=== PATIENT | male | born 1975 | race Caucasian/White ===

== ENCOUNTER → 2018-04-06 11:33 | Outpatient (CLI) | payer MEDICAID | END | disposition home or self-care (01) | LOC: D.MRI 11:30 | DX: M54.5 Low back pain (principal) ==

== ENCOUNTER → 2018-06-17 12:12 | Outpatient (CLI) | payer MEDICAID ==
--- NOTE | ~2018-06-17 | ST ---
PATIENT:GABRIEL OLIVA V MEDICAL RECORD: [id number] SEX: M LOCATION:[facility] ORDER #: ADMISSION DATE: 06/17/18 AGE OF PATIENT: 42 REFERRING PHYSICIAN: INTERPRETING PHYSICIAN: MARTA ZABALA MD DATE OF SERVICE: 06/17/2018 PROCEDURE: Nuclear stress test. INDICATION: Chest pain. The patient was exercised on standard Sharif protocol for 5 minutes 30 seconds achieving greater than 85% max target heart rate response with 32 mCi of sestamibi injected at peak stress, 10 mCi were used previously for rest images. FINDINGS: Gated SPECT reveals preserved ejection fraction at 62% with good wall motion and thickening and brightening throughout all segments. SPECT imaging Cardiolite was used as myocardial fusion agent. There is homogeneous uptake throughout all segments at rest and stress with no evidence of inducible ischemia or previous infarction. OVERALL IMPRESSION: 1. This is a normal nuclear stress test with no evidence of inducible ischemia or previous infarction. 2. Gated SPECT reveals a preserved ejection fraction at 62%. In this patient with ongoing symptomatology, the current scan does not suggest the presence of hemodynamically significant coronary artery disease. Evaluate noncardiac etiology of chest pain. TRANSINT:[id number] Voice Confirmation ID: [id number] DOCUMENT ID: [id number] MARTA ZABALA MD at 1425 CC: VANESSA ADAMES MD [id number] DICTATION DATE: 06/18/18 1201 BAND NAILER: 06/18/18 1333 DEP CLI 06/17/18 [place] [id number]
== END | disposition home or self-care (01) ==
LOC: D.HCCARDIO 12:00
DX: R07.9 Chest pain, unspecified (principal)

== ENCOUNTER → 2018-10-07 19:13 | Outpatient (CLI) | payer MEDICAID | END | disposition home or self-care (01) | LOC: D.LABREF 19:13 | PROVIDERS: ATTEND Urology | DX: D72.829 Elevated white blood cell count, unspecified (principal) ==

== ENCOUNTER 2018-10-29 07:05 | Day surgery (SDC) | payer MEDICAID ==
[~2018-10-29] VITALS: Ht 175.3 cm; Wt 90.7 kg
[~2018-10-29 07:05] MED LIST: OMEPRAZOLE DR 20 MG PO
[2018-10-29] MEDS ORDERED: BACLOFEN10 MG PO (07:29)
[2018-10-29] MEDS ORDERED: CLARITIN 10 MG10 MG PO (07:30)
[2018-10-29 07:50] VITALS: BP 159/108; Ht 175.3 cm; Wt 90.7 kg
--- NOTE | 2018-10-29 10:45 | NUR ---
REC'D FROM SURGERY. FAMILY AT BEDSIDE.WANTING TO "GO PEE." C/O PAIN. FL TRAY AND CRANBERRY JUICE GIVEN TO PT.
--- NOTE | 2018-10-29 11:06 | NUR ---
INFORMED DR LARIOS OF PT'S C/O PAIN. RLEATES "IT WAS JUST RIMSO." AND DID NOT WANT TO GIVE ANYTHING FOR PAIN. AFTER SEEING PATIENT DR LARIOS GAVE ORDER FOR NORCO 5MG PO X1.
--- NOTE | 2018-10-29 11:20 | NUR ---
NORCO 5MG PO ADMINISTERED FOR C/O PAIN 11/13. RELATES HE CAN TAKE PAIN ANYWHERE EXCEPT THERE. FAMILY AT BEDSIDE.
--- NOTE | 2018-10-29 11:45 | NUR ---
TOLERATED FL TRAY. VOIDED SEVERAL TIMES. FAMILY AT BEDSIDE.
--- NOTE | 2018-10-29 12:00 | NUR ---
IV DC'D WITH CATHETER INTACT. WRITTEN AND VERBAL DC INST. GIVEN TO PT. VERBALIZED UNDERSTANDING.
--- NOTE | 2018-10-29 12:05 | NUR ---
DC'D HOME WITH FAMILY VIA PRIVATE VEHICLE. STABLE AT TIME OF DC.
--- NOTE | 2018-10-29 16:08 | OP ---
PATIENT NAME: GABRIEL OLIVA V MEDICAL RECORD: [id number] :73 LOCATION:D[facility] ADMISSION DATE: SURGEON: TREVOR LARIOS MD DATE OF OPERATION: 10/29/2018 SURGEON: Trevor Larios MD ANESTHESIA: TIVA by Conor Baires CRNA DIAGNOSES: Interstitial cystitis, bladder neck stenosis. PROCEDURES: Cystoscopy, bladder biopsy, and intravesical Rimso instillation. FINDINGS: On cystoscopy, there is a nonobstructive prostate. The bladder neck is obstructive. He has single ureteral orifices bilaterally. There is a small 1-mm papillary growth in the anterior wall of the bladder. BLOOD LOSS: None. CLINICAL HISTORY: This is a 43-year-old male whom I initially saw in 2017. At that time, he had symptoms of chronic prostatitis, which was equivalent to interstitial cystitis. At that time, I suggested he have cystoscopy and intravesical Rimso. Instead, he had 2 months of antibiotics, which seemed to settle down the symptoms. He has had further flare up since then and these have been treated with prolonged courses of antibiotics. His latest symptoms developed 2-3 months ago and they have been treated with antibiotics for 2 months. He has dysuria, pain at the tip of the penis, and perineal pain. He has urinary frequency every one hour with nocturia times 2. There is no urinary urgency. Coughing makes symptoms worse. He was put on Flomax when he was in his 30s. It had caused some retrograde ejaculation and it did not seem to help his symptoms. Today, he comes to have cystoscopy done, and if bladder inflammation is seen, he will have intravesical Rimso installation. HE HAS AN ALLERGY TO EFFEXOR. He was given Ancef on-call to the OR. DESCRIPTION OF PROCEDURE: The patient was given IV sedation. He was placed into dorsal lithotomy position and prepped and draped. A 17-Slovenian cystoscope with 30-degree lens was used initially for visualization. No penile or urethral strictures were seen. The prostatic lateral lobes were not obstructive. The bladder neck was rather tight and the scope had to be deflected quite far anteriorly in order to enter into the bladder. Going into the bladder, there was some mild trabeculation of the bladder. There was some inflammation of the bladder wall. On looking at the anterior bladder wall, there was a small papillary mass of about 1 mm in size. I switched to the 21-Slovenian cystoscope sheath and flexible biopsy forceps was used to obtain a biopsy of the specimen. Unfortunately, the copy room technician, on trying to retrieve the specimen from the forceps, lost the specimen. Thus, we do not have any specimen from the biopsy. At this point, the bladder was emptied through the cystoscope sheath and the scope was removed. We inserted a 16-Slovenian red rubber catheter into the bladder. Through the catheter, 50 mL of intravesical Rimso solution was instilled. Due to the bladder neck stenosis, I am going to give him a month trial of Flomax again to see if it helps with his voiding symptoms. I will see him in follow up in 2 weeks' time. TRANSINT:[id number] Voice Confirmation ID: [id number] DOCUMENT ID: [id number] OPERATIVE REPORT [id number] GABRIEL OLIVA, TREVOR [place] MD at 1608 CC: [id number] DICTATION DATE: 10/29/18 1048 FRETTED INSTRUMENT INSPECTOR: 10/29/18 1303 [facility] 10/29/18 [facility] [address] [place] [address]
== END 2018-10-29 12:05 | disposition home or self-care (01) ==
LOC: D.OPS 07:05 → D.PAN 07:30 → D.OPS 07:30 → D.PAN 11:20 → D.OPS 12:05
PROVIDERS: ATTEND Urology
DX: N30.10 Interstitial cystitis (chronic) without hematuria (principal); N32.0 Bladder-neck obstruction; Z01.812 Encounter for preprocedural laboratory examination

== ENCOUNTER → 2019-03-29 18:17 | Outpatient (CLI) | payer MEDICAID ==
[2018-10-29 07:50] VITALS: BMI 29.6
[~2019-03-29 18:17] MED LIST changes: +BACLOFEN10 MG PO; +CLARITIN 10 MG10 MG PO
== END | disposition home or self-care (01) ==
LOC: D.LABREF 18:17
PROVIDERS: ATTEND Urology
DX: N39.0 Urinary tract infection, site not specified (principal)

== ENCOUNTER → 2019-03-31 14:12 | Outpatient (CLI) | payer MEDICAID ==
[2018-10-29 07:50] VITALS: BMI 29.6
== END | disposition home or self-care (01) ==
LOC: D.CT 14:12
PROVIDERS: ATTEND Urology
DX: R31.21 Asymptomatic microscopic hematuria (principal)